=== PATIENT | male | born 1965 | race Hispanic/Latino ===

== ENCOUNTER 2022-08-11 14:07 | Inpatient (IN) | payer OTHER, MEDICARE ==
[2022-08-11 16:08] LABS: Basophils % (Auto) 0.1 % (0.0-1.8); Eosinophils % (Auto) 0.2 % (0.0-4.3); Hemoglobin 14.3 gm/dl (11.8-15.2); Lymphocytes # (Auto) 0.8 K/mm3 (1.2-5.4); Lymphocytes % (Auto) 7.5 % (13.4-35.0); Mean Corpuscular HGB Conc 33 % (32-34); Mean Corpuscular Volume 87 fl (84-94); Monocytes # (Auto) 0.7 K/mm3 (0.0-0.8); Monocytes % (Auto) 6.6 % (0.0-7.3); Platelet Count 193 K/mm3 (140-440); Red Blood Count 4.96 M/mm3 (3.65-5.03); Red Cell Distribution Width 14.3 % (13.2-15.2)
[2022-08-11] MEDS ORDERED: SODIUM CHLORIDE 0.9% 1000 ML 1,000 ML IV ONE (16:29)
[2022-08-11] MEDS ORDERED: ONDANSETRON 4 MG/2 ML INJ IV ONE (16:30)
[2022-08-11] MEDS ORDERED: diphenhydrAMINE 50 MG/ML VIAL IV ONE (16:31)
[2022-08-11] MEDS ORDERED: HYDROCORTISONE SOD SUCC 100 MG/2 ML VIAL IV ONE (16:31)
[2022-08-11] MEDS ORDERED: FAMOTIDINE 20 MG/2 ML INJ IV ONE (16:31)
[2022-08-11 16:35] LABS: Alanine Aminotransferase 32 units/L (7-56); Albumin 4.6 g/dL (3.9-5); BUN/Creatinine Ratio 21; Blood Urea Nitrogen 19 mg/dL (9-20); Calcium 8.9 mg/dL (8.4-10.2); Hemolysis Index 30
--- NOTE | 2022-08-11 16:55 | XRay Report ---
CHEST 1 VIEW 08/11/2022 3:47 PM INDICATION / CLINICAL INFORMATION: s/p cabg, p/w chest pain,. COMPARISON: None available. FINDINGS: SUPPORT DEVICES: None. HEART / MEDIASTINUM: No significant abnormality. LUNGS / PLEURA: No significant pulmonary or pleural abnormality. No pneumothorax. ADDITIONAL FINDINGS: No significant additional findings. IMPRESSION: 1. No acute findings. Signer Name: Grant Amezcua MD Signed: 08/11/2022 4:50 PM Workstation Name: [id number]
--- NOTE | 2022-08-11 18:56 | Emergency Department Report ---
HPI - General Chief Complaint: Nausea/Vomiting/Diarrhea PUI?: No Time Seen by Provider: 08/11/22 14:52 - HPI HPI: 56-year-old male with a history of CABG possibly 3 weeks ago in [facility], hyperlipidemia, bipolar disorder, schizophrenia, brought in from the airport via EMS for syncope. Patient reports he and his currently live in [place] and moved there shortly after undergoing coronary artery bypass graft, triple- vessel, 3 weeks ago. He has undergone cardiac rehabilitation. Patient's reports that they had return to [place] "to do some jay events" and the patient states he had not slept well last night. He reports yesterday feeling a tightness in his left upper quadrant. He states while in route on the flight today, he felt lightheadedness and dizzy and syncopized. Patient's states the patient had a witnessed syncopal episode midflight for approximately 10 to 15 seconds. Medical staff on the plane were called to his side and he was given oxygenation and supportive care. He was brought to the ER for emergent evaluation. Patient reports he feels nauseated and had vomited up a muffin he had eaten during breakfast. He denies any headache vision changes chest pain shortness of breath difficulty breathing or palpitations. He complains of generalized weakness. Pain currently 0/10 Patient has and his report that they have moved to [facility] point of this to [place], and that his new medical assistant secretary will see him on this upcoming Friday, August 16, 2022. Name of medical assistant secretary and time of appointment are unknown at this time. ED Past Medical Hx - Past Medical History Previous Medical History?: No Additional medical history: hyperlipidemia, hypothyroid - Surgical History Hx Open Heart Surgery: Yes ED Review of Systems ROS: Stated complaint: N/V, WEAKNESS Other details as noted in HPI Comment: All other systems reviewed and negative Physical Exam - Physical Exam Vital Signs: Vital Signs 08/11/22 08/11/22 14:31 18:36 Pulse Rate 94 H Respiratory 18 Rate Blood Pressure 133/82 [Left] O2 Sat by Pulse 98 100 Oximetry General: Gen: pt is well appearing, no acute distress HEENT: Normocephalic atraumatic pupils equally round and reactive to light extraocular muscles intact sclera anicteric Neck: Full range of motion, no midline spinal tenderness palpation, no JVD, no carotid bruits, no nuchal rigidity CVS: S1-S2 regular rate and rhythm with no gallops rubs or murmurs, chest wall nontender Pulmonary: Clear to auscultation bilaterally, no wheezes rales or rhonchi Abdomen: Soft nondistended nontender no guarding or rebound tenderness, no palpable deformities or step-offs, normal active bowel sounds, no hepatosplenomegaly, no pulsatile masses : Deferred Extremities: No cyanosis no clubbing no edema, intact distal peripheral pulses, Integumentary: Skin normal, no petechia no purpura no abscess no lacerations no evidence of trauma no evidence of infection Neuro: Patient is awake alert and oriented to person place time situation, mentating well, cranial nerves II through XII intact, no focal neurodeficits, sensation grossly tact Psych: Calm cooperative, mood affect normal ED Course Vital Signs 08/11/22 08/11/22 14:31 18:36 Pulse Rate 94 H Respiratory 18 Rate Blood Pressure 133/82 [Left] O2 Sat by Pulse 98 100 Oximetry - Reevaluation(s) Reevaluation #1: 08/11/22 18:57 Patient has returned from CAT scan. He is comfortable and well-appearing. He is ANO x4, mentating well. He is in no extremis. Pt observed typing on personal cellular telephone. Reevaluation #2: 08/11/22 20:26 Pt reassessed. He denies any shortness of breath, difficulty breathing, or recurrent syncopal episodes while present here ED Medical Decision Making - Lab Data Result diagrams: 08/11/22 15:53 08/11/22 15:53 - EKG Data -: EKG Interpreted by Mi EKG shows normal: sinus rhythm Rate: normal - EKG Data When compared to previous EKG there are: no significant change - Radiology Data Radiology results: report reviewed - Medical Decision Making 56-year-old male with multiple medical comorbidities, presents for evaluation of witnessed syncopal aspect showed on a flight. Vital stable. EKG grossly unremarkable. Troponin levels are grossly unremarkable. CTA performed of chest to rule out underlying pulmonary embolism. Per reading radiologist left lower lobe pulmonary embolism cannot be ruled out. Patient will be admitted to the hospital service for serial cardiac enzymes and overnight observation. VQ scan ordered. His performance is pending at the time of this dictation. Patient has been accepted by Dr. Bean for admission to the hospital service. Critical care attestation.: If time is entered above; I have spent that time in minutes in the direct care of this critically ill patient, excluding procedure time. ED Disposition Clinical Impression: Syncope, Chest pain Disposition: ADMITTED INPATIENT Is pt being admited?: Yes Does the pt Need Aspirin: No Condition: Stable Instructions: Nonspecific Chest Pain, Adult, Syncope (ED)
--- NOTE | 2022-08-11 18:57 | Cat Scan Report ---
CTA CHEST WITH CONTRAST INDICATION / CLINICAL INFORMATION: s/p cabg 3 weeks ago, p/w syncope, chest pain. TECHNIQUE: Axial CT images were obtained through the chest after injection of IV contrast. 3 plane ID P and/or 3D reconstructions were produced. All CT scans at this location are performed using CT dose reduction for ALARA by means of automated exposure control. COMPARISON: None available. FINDINGS: The main pulmonary arteries are patent. There is some areas of low signal density in the peripheral a spect of left lower lung pulmonary arteries. Some these areas are within the veins. No mediastinal or hilar adenopathy. Upper lung pulmonary arteries appear normal. No focal consolidation or pleural eff usion. No dominant nodule or mass is seen. Degenerative changes seen throughout the spine ADDITIONAL FINDINGS: None. UPPER ABDOMEN: No acute findings. SKELETAL STRUCTURES: No significant osseous abnormality. IMPRESSION: 1. No central PTE is seen. There is some questionable filling defects within the peripheral aspect of left lower lung pulmonary arteries. There is significant artifact in the left lower lung and several these areas of low-attenuation within the pulmonary veins. Motion artifact is also seen in the left lower lung. A peripheral left lower lung PTE cannot be completely excluded and clinical correlation recommended. Signer Name: Grant Amezcua MD Signed: 08/11/2022 6:53 PM Workstation Name: [id number]
--- NOTE | 2022-08-11 21:02 | Nuclear Medicine Report ---
NUCLEAR MEDICINE PERFUSION LUNG SCAN INDICATION / CLINICAL INFORMATION: LLL PE; pt pw syncope, s/p cabg. TECHNIQUE: 5 mCi of Tc-99m MAA were given by IV. COMPARISON: Chest radiograph dated 08/11/2022. FINDINGS: PERFUSION: No significant perfusion defects. ADDITIONAL FINDINGS: None. IMPRESSION: 1. Low probability for pulmonary embolism. Signer Name: Buddy Vizcaino MD Signed: 08/11/2022 8:57 PM Workstation Name: [id number]
[2022-08-11] MEDS ORDERED: NITROGLYCERIN 0.4 MG TAB SUBL SL PRN (21:40)
[2022-08-11] MEDS ORDERED: MORPHINE 4 MG/1 ML INJ IV PRN (21:40)
[2022-08-11] MEDS ORDERED: traMADol 50 MG TAB PO PRN (21:40)
[2022-08-11] MEDS ORDERED: ACETAMINOPHEN 325 MG TAB PO PRN (21:40)
[2022-08-11] MEDS ORDERED: SODIUM CHLORIDE 0.9% 1000 ML 1,000 ML IV SCH (21:45)
--- NOTE | 2022-08-11 21:47 | History and Physical Report ---
History of Present Illness Date of examination: 08/11/22 Date of admission: 08/11/22 Chief complaint: Nausea vomiting diarrhea Syncope History of present illness: 56-year-old male with a history of CABG possibly 3 weeks ago in [facility], hyperlipidemia, bipolar disorder, schizophrenia, brought in from the airport via EMS for syncope. Patient reports he and his currently live in [place] and moved there shortly after undergoing coronary artery bypass graft, triple- vessel, 3 weeks ago. He has undergone cardiac rehabilitation. Patient's reports that they had return to [place] "to do some jay events" and the patient states he had not slept well last night. He reports yesterday feeling a tightness in his left upper quadrant. He states while in route on the flight today, he felt lightheadedness and dizzy and syncopized. Patient's states the patient had a witnessed syncopal episode midflight for approximately 10 to 15 seconds. Medical staff on the plane were called to his side and he was given oxygenation and supportive care. He was brought to the ER for emergent evaluation. Patient reports he feels nauseated and had vomited up a muffin he had eaten during breakfast. He denies any headache vision changes chest pain shortness of breath difficulty breathing or palpitations. He complains of generalized weakn ess. Pain currently 0/10 In the emergency room initial cardiac enzyme is negative troponin is 0.010. Still going to admit the patient we will do the serial enzyme, echocardiogram and cardiology evaluation Past History Past Medical History: other (CABG possibly 3 weeks ago in [facility], hyperlipidemia, bipolar disorder, schizophrenia, ) Past Surgical History: CABG Social history: no significant social history Family history: hypertension Medications and Allergies Allergies Allergy/AdvReac Type Severity Reaction Status Date / Time No Known Allergies Allergy Verified 08/11/22 15:45 Review of Systems Constitutional: weakness, malaise, other Cardiovascular: chest pain, syncope Gastrointestinal: nausea, vomiting, diarrhea Exam - Constitutional Vitals: Temp Pulse Resp BP Pulse Ox 94 H 18 133/82 100 08/11/22 14:31 08/11/22 14:31 08/11/22 14:31 08/11/22 18:36 General appearance: Present: no acute distress, well-nourished - EENT Eyes: Present: PERRL ENT: hearing intact, clear oral mucosa - Neck Neck: Present: supple, normal ROM - Respiratory Respiratory effort: normal Respiratory: bilateral: CTA - Cardiovascular Heart Sounds: Present: S1 & S2. Absent: rub, click - Extremities Extremities: pulses symmetrical, No edema Peripheral Pulses: within normal limits - Abdominal General gastrointestinal: Present: soft, non-tender, non-distended, normal bowel sounds Male genitourinary: Present: normal - Integumentary Integumentary: Present: clear, warm, dry - Musculoskeletal Musculoskeletal: gait normal, strength equal bilaterally - Psychiatric Psychiatric: appropriate mood/affect, intact judgment & insight - Neurologic Neurologic: CNII-XII intact, moves all extremities HEART Score - HEART Score Troponin: Troponin T < 0.010 ng/mL (0.00-0.029) 08/11/22 15:53 Results - Labs CBC & Chem 7: 08/11/22 15:53 08/11/22 15:53 Labs: Laboratory Last Values WBC 10.5 K/mm3 (4.5-11.0) 08/11/22 15:53 RBC 4.96 M/mm3 (3.65-5.03) 08/11/22 15:53 Hgb 14.3 gm/dl (11.8-15.2) 08/11/22 15:53 Hct 43.0 % (35.5-45.6) 08/11/22 15:53 MCV 87 fl (84-94) 08/11/22 15:53 MCH 29 pg (28-32) 08/11/22 15:53 MCHC 33 % (32-34) 08/11/22 15:53 RDW 14.3 % (13.2-15.2) 08/11/22 15:53 Plt Count 193 K/mm3 (140-440) 08/11/22 15:53 Lymph % (Auto) 7.5 % (13.4-35.0) L 08/11/22 15:53 [place] % (Auto) 6.6 % (0.0-7.3) 08/11/22 15:53 Eos % (Auto) 0.2 % (0.0-4.3) 08/11/22 15:53 Baso % (Auto) 0.1 % (0.0-1.8) 08/11/22 15:53 Lymph # (Auto) 0.8 K/mm3 (1.2-5.4) L 08/11/22 15:53 [place] # (Auto) 0.7 K/mm3 (0.0-0.8) 08/11/22 15:53 Eos # (Auto) 0.0 K/mm3 (0.0-0.4) 08/11/22 15:53 Baso # (Auto) 0.0 K/mm3 (0.0-0.1) 08/11/22 15:53 Seg Neutrophils % 85.6 % (40.0-70.0) H 08/11/22 15:53 Seg Neutrophils # 9.0 K/mm3 (1.8-7.7) H 08/11/22 15:53 D-Dimer 227.11 ng/mlDDU (0-234) 08/11/22 20:04 Sodium 138 mmol/L (137-145) 08/11/22 15:53 Potassium 4.2 mmol/L (3.6-5.0) 08/11/22 15:53 Chloride 101.6 mmol/L (98-107) 08/11/22 15:53 Carbon Dioxide 20 mmol/L (22-30) L 08/11/22 15:53 Anion Gap 21 mmol/L 08/11/22 15:53 BUN 19 mg/dL (9-20) 08/11/22 15:53 Creatinine 0.9 mg/dL (0.8-1.3) 08/11/22 15:53 Estimated GFR > 60 ml/min 08/11/22 15:53 BUN/Creatinine Ratio 21 % 08/11/22 15:53 Glucose 108 mg/dL (75-100) H 08/11/22 15:53 Calcium 8.9 mg/dL (8.4-10.2) 08/11/22 15:53 Total Bilirubin 0.30 mg/dL (0.1-1.2) 08/11/22 15:53 AST 31 units/L (5-40) 08/11/22 15:53 ALT 32 units/L (7-56) 08/11/22 15:53 Alkaline Phosphatase 109 units/L (35-129) 08/11/22 15:53 Troponin T < 0.010 ng/mL (0.00-0.029) 08/11/22 15:53 Total Protein 6.5 g/dL (6.3-8.2) 08/11/22 15:53 Albumin 4.6 g/dL (3.9-5) 08/11/22 15:53 Albumin/Globulin Ratio 2.4 % 08/11/22 15:53 Lipase 21 units/L (13-60) 08/11/22 15:53 - Imaging and Cardiology CT scan - chest: report reviewed Assessment and Plan VTE prophylaxis?: Mechanical Plan of care discussed with patient/family: Yes - Patient Problems (1) Syncope Current Visit: Yes Status: Acute Plan to address problem: Admit the patient to the medical telemetry. NPO. Normal saline at the rate of 100 cc/h. Aspirin 325 mg p.o. daily. Lipitor 40 mg p.o. daily. Echocardiogram. Cardiology evaluation (2) Nausea vomiting and diarrhea Current Visit: Yes Status: Acute Plan to address problem: Normal saline at the rate of 100 cc/h. Protonix 40 mg p.o. daily. Zofran 4 mg IV every 6 hours as needed (3) Hyperlipidemia Current Visit: Yes Status: Acute Plan to address problem: Lipitor 40 mg p.o. daily. Recheck the lipid panel (4) ACS (acute coronary syndrome) Current Visit: Yes Status: Acute Plan to address problem: Aspirin 325 mg p.o. daily. Lipitor 40 mg p.o. daily. Echocardiogram. Cardi ology evaluation (5) Hx of CABG Current Visit: Yes Status: Acute Plan to address problem: Aspirin 325 mg p.o. daily. Lipitor 40 mg p.o. daily. Echocardiogram. Cardiology evaluation (6) DVT prophylaxis Current Visit: Yes Status: Acute Plan to address problem: SCD for DVT prophylaxis. Protonix 40 mg p.o. daily for GI prophylaxis. Patient is a full code
[2022-08-11 22:21] LABS: Basophils % (Auto) 0.2 % (0.0-1.8); Eosinophils % (Auto) 0.2 % (0.0-4.3); Hematocrit 44.3 % (35.5-45.6); Hemoglobin 14.7 gm/dl (11.8-15.2); Lymphocytes # (Auto) 0.6 K/mm3 (1.2-5.4); Lymphocytes % (Auto) 10.5 % (13.4-35.0); Mean Corpuscular HGB Conc 33 % (32-34); Mean Corpuscular Volume 88 fl (84-94); Monocytes # (Auto) 0.2 K/mm3 (0.0-0.8); Monocytes % (Auto) 2.8 % (0.0-7.3); Platelet Count 200 K/mm3 (140-440); Red Blood Count 5.06 M/mm3 (3.65-5.03); Red Cell Distribution Width 14.2 % (13.2-15.2)
[2022-08-11 22:46] LABS: BUN/Creatinine Ratio 20; Blood Urea Nitrogen 16 mg/dL (9-20); Calcium 9.1 mg/dL (8.4-10.2); Hemolysis Index 26
[2022-08-12 08:24] VITALS: BP 107/61
[2022-08-12] MEDS: ASPIRIN EC 325 MG TAB PO SCH ×2 (09:16→09:21)
[2022-08-12] MEDS ORDERED: ROSUVASTATIN CALCIUM 20 MG PO SCH (10:00)
[2022-08-12] MEDS ORDERED: TRANYLCYPROMINE SULFATE 10 MG PO SCH (10:00)
[2022-08-12] MEDS ORDERED: PANTOPRAZOLE 40 MG TAB PO SCH (10:00)
[2022-08-12] MEDS ORDERED: LEVOTHYROXINE 112 MCG TAB PO SCH (10:00)
[2022-08-12] MEDS ORDERED: NON-FORMULARY EACH (Rivaroxaban 20 MG Tablet) PO SCH (10:00)
--- NOTE | 2022-08-12 10:31 | Consultation ---
History of Present Illness Consult date: 08/12/22 Requesting physician: RINA MÉNDEZ Consult reason: syncope History of present illness: 56-year-old male with history of hyperlipidemia, CAD status post three-vessel bypass surgery about 9 weeks ago in [facility] recovering well in cardiac rehab was traveling to [place] via flight had an episode of syncope for about few seconds. He said he felt nauseous and some funny feeling in his chest prior to the episode. No witnessed seizures. He was having generalized weakness and was not able to follow commands immediately after the episode back to baseline few minutes. He was brought into the hospital from the airport. Since in the hospital he did not have any more episodes. Of note patient did well after the bypass surgery. For the last couple of weeks he has been having some exertional chest tightness improved with rest most likely CCS class II 1-2 symptoms. No chest pain at usual activity. He also has some sharp chest pain in the left lower chest which he attributes to his coronary artery disease. No dyspnea on exertion orthopnea or PND. Past History Past Medical History: DVT, hyperlipidemia, other (CABG possibly 9 weeks ago in [facility], hyperlipidemia, bipolar disorder, schizophrenia, ) Past Surgical History: CABG Social history: no significant social history Family history: hypertension Medications and Allergies Allergies Allergy/AdvReac Type Severity Reaction Status Date / Time seafood Allergy Shortness Uncoded 08/12/22 05:56 of Breath Home Medications Medication Instructions Recorded Confirmed Last Taken Type Levothyroxine [Synthroid] 112 mcg PO QAM 08/12/22 08/12/22 Unknown History QUEtiapine [SEROquel] 100 mg PO QHS 08/12/22 08/12/22 Unknown History Rivaroxaban [Xarelto] 20 mg PO QDAY 08/12/22 08/12/22 Unknown History Rosuvastatin Calcium 20 mg PO DAILY 08/12/22 08/12/22 Unknown History Tranylcypromine Sulfate [Parnate] 10 mg PO DAILY 08/12/22 08/12/22 Unknown History Active Meds: Active Medications Acetaminophen (Acetaminophen 325 Mg Tab) 650 mg PO Q6H PRN PRN Reason: Pain, Mild (1-3) Aspirin (Aspirin Ec 325 Mg Tab) 325 mg PO QDAY LOR Last Admin: 08/12/22 09:21 Dose: Not Given Sodium Chloride (Nacl 0.9% 1000 Ml) 1,000 mls @ 100 mls/hr IV [facility] Last Admin: 08/12/22 01:34 Dose: 100 mls/hr Levothyroxine Sodium (Levothyroxine 112 Mcg Tab) 112 mcg PO QAM [facility] Miscellaneous Medication (Rivaroxaban) 20 mg PO QDAY [facility] Miscellaneous Medication (Rosuvastatin Calcium [Rosuvastatin Calcium]) 20 mg PO DAILY [facility] Miscellaneous Medication (Tranylcypromine Sulfate [Parnate]) 10 mg PO DAILY [facility] Morphine Sulfate (Morphine 4 Mg/1 Ml Inj) 2 mg IV Q5MIN PRN PRN Reason: Chest Pain unrelieved by NTG Nitroglycerin (Nitroglycerin 0.4 Mg Tab Subl) 0.4 mg SL Q5M PRN PRN Reason: Chest Pain Pantoprazole Sodium (Pantoprazole 40 Mg Tab) 40 mg PO QDAY [facility] Last Admin: 08/12/22 09:16 Dose: 40 mg Quetiapine Fumarate (Quetiapine 100 Mg Tab) 100 mg PO QHS [facility] Sodium Chloride (Sodium Chloride 0.9% 10 Ml Flush Syringe) 10 ml IV PRN PRN PRN Reason: LINE FLUSH Tramadol HCl (Tramadol 50 Mg Tab) 50 mg PO Q6H PRN PRN Reason: Pain, Moderate (4-6) Review of Systems Constitutional: no fever, no chills Ears, nose, mouth and throat: no tinnitis Cardiovascular: chest pain (Exertional CCS class I - II), no orthopnea, no rapid/irregular heart beat, no dyspnea on exertion, no paroxysmal nocturnal dyspnea Respiratory: no cough, no hemoptysis Gastrointestinal: nausea, vomiting, no diarrhea Genitourinary Male: no dysuria Musculoskeletal: no neck pain Integumentary: no rash Endocrine: no palpatations Physical Examination Vital Signs Pulse Resp BP Pulse Ox 94 H 18 133/82 98 08/11/22 14:31 08/11/22 14:31 08/11/22 14:31 08/11/22 14:31 General appearance: no acute distress HEENT: Positive: PERRL, Normocephaly Neck: Positive: neck supple. Negative: JVD/HJR Cardiac: Positive: Reg Rate and Rhythm, S1/S2. Negative: Systolic Murmur Lungs: Positive: clear to auscultation, No Wheeze, Rales, Rhonchi Neuro: Positive: Grossly Intact Abdomen: Positive: Soft Skin: Negative: Rash Extremities: Absent: edema Results 08/11/22 22:01 08/11/22 22:01 Cardiac Enzymes 08/11/22 Range/Units 15:53 AST 31 (5-40) units/L CBC 08/11/22 08/11/22 Range/Units 15:53 22:01 WBC 10.5 5.8 (4.5-11.0) K/mm3 RBC 4.96 5.06 H (3.65-5.03) M/mm3 Hgb 14.3 14.7 (11.8-15.2) gm/dl Hct 43.0 44.3 (35.5-45.6) % Plt Count 193 200 (140-440) K/mm3 Lymph # (Auto) 0.8 L 0.6 L (1.2-5.4) K/mm3 [place] # (Auto) 0.7 0.2 (0.0-0.8) K/mm3 Eos # (Auto) 0.0 0.0 (0.0-0.4) K/mm3 Baso # (Auto) 0.0 0.0 (0.0-0.1) K/mm3 Comprehensive Metabolic Panel 08/11/22 08/11/22 Range/Units 15:53 22:01 Sodium 138 132 L (137-145) mmol/L Potassium 4.2 4.9 (3.6-5.0) mmol/L Chloride 101.6 97.1 L (98-107) mmol/L Carbon Dioxide 20 L 21 L (22-30) mmol/L BUN 19 16 (9-20) mg/dL Creatinine 0.9 0.8 (0.8-1.3) mg/dL Glucose 108 H 115 H (75-100) mg/dL Calcium 8.9 9.1 (8.4-10.2) mg/dL AST 31 (5-40) units/L ALT 32 (7-56) units/L Alkaline Phosphatase 109 (35-129) units/L Total Protein 6.5 (6.3-8.2) g/dL Albumin 4.6 (3.9-5) g/dL EKG interpretations - Telemetry EKG Rhythm: Sinus Rhythm Assessment and Plan - Patient Problems (1) Syncope Current Visit: Yes Status: Acute Plan to address problem: Symptoms appears to be vasovagal in nature. However a cardiac etiology cannot be excluded. We will get an echocardiogram to rule out LV systolic dysfunction post operatively. (2) Atherosclerosis of coronary artery bypass graft of [place] heart with stable angina pectoris Current Visit: Yes Status: Acute Plan to address problem: Troponins negative x2 during this admission no evidence of acute W[place] on the ECG Patient had an ER visit about a week ago for chest pain he was ruled out and was offered a stress/cardiac cath which the patient did not have. I discussed at length about the work-up, but the patient wants it to be done at [place] close to home he has an appointment scheduled for this Friday. (3) DVT (deep venous thrombosis) Current Visit: Yes Status: Acute Plan to address problem: Patient have a DVT postoperatively. He is on anticoagulation, please resume his home medication.
[2022-08-12] MEDS ORDERED: RIVAROXABAN 20 MG TAB PO SCH (12:00)
--- NOTE | 2022-08-12 12:00 | Discharge Summary ---
Providers - Providers Date of Admission: 08/11/22 21:40 Attending physician: RINA MÉNDEZ MD 08/11/22 Consult to Cardiac Rehabilitation [CONS] Routine Reason For Exam: Phase I 08/11/22 21:40 Consult to Cardiology [CONS] Routine Consulting Provider: GIANA SANCHEZ Reason For Exam: acs Primary care physician: AMARILIS LO Hospitalization Reason for admission: Syncope Condition: Stable Hospital course: 56-year-old male with a history of CABG possibly 3 weeks ago in [facility], hyperlipidemia, bipolar disorder, schizophrenia, [place] from the airport via EMS for syncope. Patient reports he and his currently live in [place] and moved there shortly after undergoing coronary artery bypass graft, triple-vessel, 3 weeks ago. He has undergone cardiac rehabilitation. Patient's reports that they had return to [place] "to do some jay events" and the patient states he had not slept well last night. He reports yesterday feeling a tightness in his left upper quadrant. He states while in route on the flight today, he felt lightheadedness and dizzy and syncopized. Patient's states the patient had a witnessed syncopal episode midflight for approximately 10 to 15 seconds. Medical staff on the plane were called to his side and he was given oxygenation and supportive care. He was brought to the ER for emergent evaluation. Patient reports he feels nauseated and had vomited up a muffin he had eaten during breakfast. He denies any headache vision changes chest pain shortness of breath difficulty breathing or palpitations. He complains of generalized weakness. Pain currently 0/10 In the emergency room initial cardiac enzyme is negative troponin is 0.010. Still going to admit the patient we will do the serial enzyme, echocardiogram and cardiology evaluation Of note patient did well after the bypass surgery. For the last couple of weeks he has been having some exertional chest tightness improved with rest most likely CCS class II 1-2 symptoms. No chest pain at usual activity. He also has some sharp chest pain in the left lower chest which he attributes to his alma nary artery disease. No dyspnea on exertion orthopnea or PND. Echo: Normal EF, Minimal Regurgitations on Valves Patient clinical stable at this time, cardiology cleared for this charge, patient to follow with his chemical equipment repairer. (1) Autonomic Dysfunction Current Visit: Yes Status: Acute Plan to address problem: Admit the patient to the medical telemetry. NPO. Normal saline at the rate of 100 cc/h. Aspirin 325 mg p.o. daily. Lipitor 40 mg p.o. daily. Echocardiogram. Cardiology evaluation (2) Nausea vomiting and diarrhea Current Visit: Yes Status: Acute Plan to address problem: Normal saline at the rate of 100 cc/h. Protonix 40 mg p.o. daily. Zofran 4 mg IV every 6 hours as needed (3) Hyperlipidemia Current Visit: Yes Status: Acute Plan to address problem: Lipitor 40 mg p.o. daily. Recheck the lipid panel (4) ACS (acute coronary syndrome) Current Visit: Yes Status: Acute Plan to address problem: Aspirin 325 mg p.o. daily. Lipitor 40 mg p.o. daily. Echocardiogram. Cardiology evaluation (5) Hx of CABG Current Visit: Yes Status: Acute Plan to address problem: Aspirin 325 mg p.o. daily. Lipitor 40 mg p.o. daily. Echocardiogram. 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 I discussed at length about the work-up, but the patient wants it to be done at [place] close to home he has an appointment scheduled for this Friday. Disposition: HOME / SELF CARE / HOMELESS Final Discharge Diagnosis (Prints w/discharge instructions): (1) Autonomic Dysfunction. . (2) Nausea vomiting and diarrhea. (3) Hyperlipidemia. (4) ACS (acute coronary syndrome). (5) Hx of CABG. 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 GENERAL: The patient appears normally developed, Vital signs as documented. HEAD: No signs of head trauma. EYES: Pupils are equal. Extraocular motions intact. EARS: Hearing grossly intact. MOUTH: Oropharynx is normal. NECK: No adenopathy, no JVD. CHEST: Chest with clear breath sounds bilaterally. No wheezes, rales, or rhonchi. CARDIAC: Regular rate and rhythm. S1 and S2, without murmurs, gallops, or rubs. VASCULAR: No Edema. Peripheral pulses normal and equal in all extremities. ABDOMEN: Soft, non tender and non distended. No rebound or guarding, and no masses palpated. Bowel Sounds normal. MUSCULOSKELETAL: Well-healed surgical scar good range of motion of all major joints. Extremities without clubbing, cyanosis or edema. NEUROLOGIC EXAM: Alert and oriented x 3 No focal sensory or strength deficits. Speech normal. Follows commands. PSYCHIATRIC: Mood normal. SKIN: detail exam as documented in skin assessment - Constitutional Vitals: Temp Pulse Resp BP Pulse Ox 98.3 F 92 H 18 107/61 96 08/12/22 08:22 08/12/22 08:22 08/12/22 11:24 08/12/22 08:22 08/12/22 11:24 Plan Activity: advance as tolerated (No strenous activity until seen by your primary chemical equipment repairer), fall precautions Diet: low fat Special Instructions: record daily weights, record daily BP diary Follow up with: AMARILIS LO MD [Primary Care Provider] - 7 Days Prescriptions: Aspirin [Aspirin BABY CHEW TAB] 81 mg PO QDAY #30 tab.chew Pantoprazole [Protonix TAB] 40 mg PO QDAY #30 tablet Ondansetron [Zofran Odt] 4 mg PO Q8HR #30 tab.antonia
--- NOTE | 2022-08-12 13:05 | Electrocardiograph Report ---
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
--- NOTE | 2022-08-12 13:08 | Electrocardiograph Report ---
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
[2022-08-12] MEDS ORDERED: QUEtiapine 100 MG TAB PO SCH (22:00)
--- NOTE | 2022-08-13 09:55 | Electrocardiograph Report ---
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
== END 2022-08-12 13:05 | disposition home or self-care (01) | DRG 74 ==
LOC: ED 14:07 → 4A 21:40
PROVIDERS: ADMIT Hospitalist; ATTEND Internal Medicine
DX: G90.8 Other disorders of autonomic nervous system (principal); I24.9 Acute ischemic heart disease, unspecified; I25.708 Atherosclerosis of coronary artery bypass graft(s), unspecified, with other forms of angina pectoris; E78.5 Hyperlipidemia, unspecified; F31.9 Bipolar disorder, unspecified; F20.9 Schizophrenia, unspecified; E03.9 Hypothyroidism, unspecified; Z82.49 Family history of ischemic heart disease and other diseases of the circulatory system; Z95.1 Presence of aortocoronary bypass graft; Z91.013 Allergy to seafood
CPT/HCPCS: 36415; 71045; 71275; 78580; 80048; 80053; 83690; 84484; 85025; 85379; 93005; 93306; 96374; 96375; 99285; G0378; J3490; A9540; C8929; J1200; J1720; J2405; J7030; Q9967